=== PATIENT | female | born 1990 | race African-American/Black ===

== ENCOUNTER 2017-08-04 11:57 | Observation (INO) ==
[2017-08-04] MEDS ORDERED: MEPERIDINE 50 MG/1 ML VIAL IM STA (13:01)
[2017-08-04] MEDS ORDERED: ONDANSETRON ODT 4 MG TABLET PO STA (13:01)
[2017-08-04] MEDS ORDERED: ACETAMINOPHEN 325 MG TABLET PO PRN (13:45)
[2017-08-04] MEDS ORDERED: BISACODYL 10 MG SUPP RECTAL PRN (13:45)
[2017-08-04] MEDS ORDERED: IBUPROFEN 800 MG TABLET PO PRN (13:45)
[2017-08-04] MEDS ORDERED: ONDANSETRON 4 MG/2 ML VIAL IV PRN (13:45)
[2017-08-04] MEDS ORDERED: MAGNESIUM HYDROXIDE SUSP 30 ML UDCUP PO PRN (13:45)
[2017-08-04] MEDS ORDERED: DEXTROSE 5% LACTATED RINGERS 1,000 ML IV SCH (14:00)
[2017-08-04 14:46] LABS: Basophils % 0.1 % (0.0-0.8); Hematocrit 38.4 VOL% (35.7-47.0); Immature Granulocytes % 0.4 %; Immature Granulocytes Absolute 0.06 #; Lymphocytes % 6.2 % (21.3-54.2); Mean Corpuscular HGB Conc 33.9 GM/DL (32-36); Mean Corpuscular Hemoglobin 30 PG (27-34); Mean Corpuscular Volume 88.9 FL (87-102); Mean Platelet Volume 10.9 FL (9.6-12.0); Monocytes # 0.7 10*3/uL (0.11-0.8); Monocytes % 4.7 % (1.7-12.7); Neutrophils # 13.8 10*3/uL (1.4-7.4); Neutrophils % 88.6 % (38.7-73.9); Platelet Count 177 T/CUMM (130-400); Red Blood Count 4.32 MC/CUMM (3.8-5.5); Red Cell Distribution Width 13.6 % (9.3-17.3); White Blood Count 15.6 T/CUMM (4-12)
[2017-08-04 14:49] LABS: Albumin 3.6 G/DL (3.4-5.0); Bilirubin,Total 0.5 MG/DL (0.2-1.0); Calcium 8.9 MG/DL (8.5-10.1); Osmolality,Calculated 262.4 MOS/KG (273-304); Potassium 3.6 MMOL/L (3.5-5.1); Total Protein 8.2 G/DL (6.4-8.3)
[2017-08-04] MEDS: MEPERIDINE 50 MG/1 ML VIAL IV PRN ×2 (15:00→20:12)
[2017-08-04] MEDS ORDERED: miSOPROStol 200 MCG TABLET VAG ONE (15:05)
[2017-08-04] MEDS ORDERED: miSOPROStol 200 MCG TABLET VAG SCH (15:21)
[2017-08-04] MEDS ORDERED: PROMETHAZINE 25 MG/1 ML VIAL IM PRN (15:31)
[2017-08-04] MEDS ORDERED: OXYTOCIN/LR 20 UNIT/1,000 ML BAG IV ONE (16:32)
[2017-08-04] MEDS ORDERED: MEPERIDINE 25 MG/1 ML VIAL IV ONE (16:44)
[2017-08-04] MEDS ORDERED: MEPERIDINE 25 MG/1 ML VIAL ONE (16:45)
[2017-08-04 18:43] LABS: Apearance,Urine CLOUDY (Clear); Bilirubin,Urine Negative (Negative); Blood, Urine Moderate mg/dL (Negative); Glucose,Urine (UA) Negative (Negative); Ketones,Urine 80 mg/dL (Negative); Mucus,Urine Occasional /LPF (Occasional); Nitrite,Urine Negative (Negative); Protein,Urine Negative; Squamous Epithelial Cell,Urine Occasional /HPF (0-10); Urine Color Amber (Yellow); Urine Specific Gravity 1.021 (1.001-1.035); WBC,Urine 3 /HPF (0-6)
[2017-08-04] MEDS ORDERED: DOCUSATE SODIUM 100 MG CAPSULE PO SCH (21:00)
[2017-08-05] MEDS: LACTATED RINGERS 1,000 ML IV SCH ×2 (00:31→09:23)
[2017-08-05 07:05] LABS: Basophils % 0.1 % (0.0-0.8); Eosinophils # 0.1 10*3/uL (0.0-0.87); Eosinophils % 0.3 % (0.00-10.9); Immature Granulocytes % 0.6 %; Immature Granulocytes Absolute 0.09 #; Lymphocytes # 2.1 10*3/uL (1.4-4.0); Lymphocytes % 14.3 % (21.3-54.2); Mean Corpuscular HGB Conc 33.7 GM/DL (32-36); Mean Corpuscular Hemoglobin 30 PG (27-34); Mean Corpuscular Volume 90.1 FL (87-102); Mean Platelet Volume 10.1 FL (9.6-12.0); Monocytes # 0.6 10*3/uL (0.11-0.8); Monocytes % 3.9 % (1.7-12.7); Neutrophils # 11.9 10*3/uL (1.4-7.4); Neutrophils % 80.8 % (38.7-73.9); Platelet Count 154 T/CUMM (130-400); Red Cell Distribution Width 13.5 % (9.3-17.3); White Blood Count 14.7 T/CUMM (4-12)
[2017-08-05 07:16] LABS: Hemoglobin 10.1 GM/DL (12.0-16.0); Red Blood Count 3.33 MC/CUMM (3.8-5.5)
[2017-08-05 11:27] VITALS: BP 114/68
== END 2017-08-05 15:00 | disposition home or self-care (01) ==
LOC: N.ED 11:57 → N.EDINP 11:57 → N.OB 13:33
PROVIDERS: ADMIT Obstetrics & Gynecology; ATTEND Obstetrics & Gynecology

== ENCOUNTER 2018-09-26 23:44 | Inpatient (IN) ==
[2018-09-27] MEDS ORDERED: BUTORPHANOL 2 MG/ML VIAL IV PRN (01:04)
[2018-09-27] MEDS ORDERED: MEPERIDINE 25 MG/1 ML VIAL IV PRN (01:04)
[2018-09-27] MEDS ORDERED: ONDANSETRON 4 MG/2 ML VIAL IV PRN (01:04)
[2018-09-27] MEDS ORDERED: OXYTOCIN/LR 20 UNIT/1,000 ML BAG IV SCH (01:30)
[2018-09-27 01:50] LABS: Basophils % 0.1 % (0.0-0.8); Eosinophils % 0.1 % (0.00-10.9); Hematocrit 33.9 VOL% (35.7-47.0); Hemoglobin 11.1 GM/DL (12.0-16.0); Immature Granulocytes % 0.3 %; Immature Granulocytes Absolute 0.03 #; Lymphocytes % 21.9 % (21.3-54.2); Mean Corpuscular HGB Conc 32.7 GM/DL (32-36); Mean Corpuscular Volume 89.2 FL (87-102); Monocytes % 6.8 % (1.7-12.7); Neutrophils % 70.8 % (38.7-73.9); Platelet Count 196 T/CUMM (130-400); Red Cell Distribution Width 13.6 % (9.3-17.3); White Blood Count 9.1 T/CUMM (4-12)
[2018-09-27] MEDS: LACTATED RINGERS 1,000 ML IV SCH ×2 (06:33→08:22)
[2018-09-27] MEDS ORDERED: ePHEDrine 50 MG/ML AMP IV PRN (07:17)
[2018-09-27] MEDS ORDERED: LACTATED RINGERS 1,000 ML IV ONE (07:17)
[2018-09-27] MEDS ORDERED: NALOXONE 0.4 MG/ML VIAL IV PRN (07:17)
[2018-09-27] MEDS ORDERED: diphenhydrAMINE 50 MG/1 ML VIAL IV PRN ×2 (07:17)
[2018-09-27] MEDS ORDERED: FAMOTIDINE 20 MG/2 ML VIAL IV ONE (07:17)
[2018-09-27] MEDS ORDERED: PROMETHAZINE 25 MG/1 ML VIAL IM ONE (07:17)
[2018-09-27] MEDS ORDERED: ONDANSETRON 4 MG/2 ML VIAL IV ONE (07:17)
[2018-09-27] MEDS ORDERED: CITRIC ACID/SODIUM CITRATE 30 ML UDCUP PO ONE (07:17)
[2018-09-27] MEDS ORDERED: fentaNYL 2 MCG/ROPIV 0.2% EPID 100 ML EPIDURAL SCH (07:30)
[2018-09-27] MEDS ORDERED: miSOPROStol 200 MCG TABLET ONE (09:02)
[2018-09-27] MEDS ORDERED: OXYTOCIN/LR 0 UNIT/0 ML BAG IV ONE (09:02)
[2018-09-27] MEDS ORDERED: METHYLERGONOVINE 0.2 MG/1 ML AMP ONE (09:03)
[2018-09-27] MEDS ORDERED: OXYTOCIN 10 UNIT/ML VIAL ONE (09:03)
[2018-09-27] MEDS ORDERED: CARBOPROST TROMETHAMINE 250 MCG/ML AMP IM ONE (09:04)
[2018-09-27 09:34] LABS: Apearance,Urine CLEAR (Clear); Bilirubin,Urine Negative (Negative); Blood, Urine Negative (Negative); Glucose,Urine (UA) Negative (Negative); Ketones,Urine 20 mg/dL (Negative); Mucus,Urine Many /LPF (Occasional); Nitrite,Urine Negative (Negative); Protein,Urine 30 MG/DL; RBC,Urine 2 /HPF (0-4); Squamous Epithelial Cell,Urine Occasional /HPF (0-10); Urine Color Yellow (Yellow); Urine Specific Gravity 1.027 (1.001-1.035)
[2018-09-27 11:03] LABS: Cord Arterial Blood HCO3 18.9 MMOL/L
[2018-09-27 11:06] LABS: Cord Venous Blood PO2 28.3
[2018-09-27] MEDS ORDERED: OXYTOCIN/LR 20 UNIT/1,000 ML BAG IV ONE (13:50)
[2018-09-27] MEDS ORDERED: BISACODYL 10 MG SUPP RECTAL PRN (13:53)
[2018-09-27] MEDS ORDERED: DIPH/TET/ACEL PERT BOOSTER VACCINE 0.5 ML VIAL IM ONE (13:53)
[2018-09-27] MEDS ORDERED: MEASLES/MUMPS/RUBELLA VACCINE 0.5 ML VIAL SUBCUT ONE (13:53)
[2018-09-27] MEDS ORDERED: RHO(D) IMMUNE GLOBULIN 300 MCG SYRINGE IM ONE (13:53)
[2018-09-27] MEDS ORDERED: HYDROCORTISONE 2.5% RECTAL CREAM 30 GM TUBE TOP PRN (13:53)
[2018-09-27] MEDS ORDERED: ACETAMINOPHEN 325 MG TABLET PO PRN (13:53)
[2018-09-27] MEDS ORDERED: BENZOCAINE 20%/MENTHOL 0.5% SPRAY 56 GM CAN TOP PRN (13:53)
[2018-09-27] MEDS ORDERED: LANOLIN 50% CREAM 0.3 OZ TUBE TOP PRN (13:53)
[2018-09-27] MEDS ORDERED: WITCH HAZEL PADS 100/JAR TOP PRN (13:53)
[2018-09-27] MEDS ORDERED: oxyCODONE/ACETAMINOPHEN 5-325 MG TABLET PO PRN ×2 (13:53)
[2018-09-27] MEDS: DOCUSATE SODIUM 100 MG CAPSULE PO SCH (21:16)
[2018-09-27] MEDS: IBUPROFEN 800 MG TABLET PO PRN (21:17)
[2018-09-28 04:50] LABS: Basophils % 0.1 % (0.0-0.8); Eosinophils # 0.1 10*3/uL (0.0-0.87); Eosinophils % 0.5 % (0.00-10.9); Hematocrit 32.9 VOL% (35.7-47.0); Hemoglobin 10.5 GM/DL (12.0-16.0); Immature Granulocytes % 0.2 %; Immature Granulocytes Absolute 0.02 #; Lymphocytes # 2.5 10*3/uL (1.4-4.0); Lymphocytes % 26.8 % (21.3-54.2); Mean Corpuscular HGB Conc 31.9 GM/DL (32-36); Mean Corpuscular Volume 90.6 FL (87-102); Mean Platelet Volume 11.2 FL (9.6-12.0); Monocytes % 6.5 % (1.7-12.7); Neutrophils % 65.9 % (38.7-73.9); Platelet Count 164 T/CUMM (130-400); Red Blood Count 3.63 MC/CUMM (3.8-5.5); Red Cell Distribution Width 13.8 % (9.3-17.3); White Blood Count 9.1 T/CUMM (4-12)
[2018-09-28] MEDS: IBUPROFEN 800 MG TABLET PO PRN ×2 (08:50→16:15)
[2018-09-28] MEDS: DOCUSATE SODIUM 100 MG CAPSULE PO SCH ×2 (10:15→20:26)
[2018-09-29] MEDS: IBUPROFEN 800 MG TABLET PO PRN (04:25)
[2018-09-29 07:31] VITALS: BP 111/70
[2018-09-29] MEDS: DOCUSATE SODIUM 100 MG CAPSULE PO SCH (10:30)
== END 2018-09-29 14:05 | disposition home or self-care (01) | DRG 560 ==
LOC: N.LDOUT 23:44 → N.LD 23:46 → N.OB 09-27 13:25
PROVIDERS: ADMIT Obstetrics & Gynecology; ATTEND Obstetrics & Gynecology